=== PATIENT | male | born 1970 | race African-American/Black ===

== ENCOUNTER 2023-10-08 20:52 | Emergency (ER) | payer SELFPAY ==
[2023-10-08 20:58] VITALS: BP 151/98; PULSE 89; RESP 18; TEMP 37.2; O2SAT 100; BMI 26.4
--- NOTE | 2023-10-08 21:04 | ED_ITS ---
HPI - Male Genitourinary General Chief complaint: Recheck/Abnormal Lab/Rx Stated complaint: UTI Time Seen by Provider: 10/08/23 20:59 Source: patient Mode of arrival: walk-in History of Present Illness HPI Narrative: 53-year-old male presents because he is concerned about having a UTI. For the past day or so he has had dysuria and frequency. 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 He has had UTIs in the past. No fever back pain or vomiting. He is not at all worried about an STD. Related Data Home Medications ?Medication ?Instructions ?Recorded ?Confirmed apixaban .ROUTE 10/08/23 Previous Rx's ?Medication ?Instructions ?Recorded ciprofloxacin HCl 250 mg tablet 250 mg PO BID #14 tabs 10/08/23 (Cipro) Allergies Allergy/AdvReac Type Severity Reaction Status Date / Time No Known Drug Allergies Allergy Verified 10/08/23 21:04 Review of Systems ROS Narrative A ten point review of systems is negative except as noted above. Exam Narrative Exam Narrative: Nurses note and vital signs reviewed and patient is not hypoxic. General: The patient appears well and in no apparent distress. Patient is resting comfortably on cart. Skin: Warm, dry, no pallor noted. There is no rash noted. Head: Normocephalic, atraumatic Eye: Normal conjunctiva, no drainage Ears, Nose, Mouth, and Throat: oral mucosa is moist. Nares patent. Cardiovascular: Regular Rate and Rhythm Respiratory: Patient is in no distress, no accessory muscle use, lungs are armando r to auscultation, no wheezing, rales or rhonchi Back: non-tender GI: Soft and nontender Musculoskeletal: The patient has no evidence of calf tenderness, no pitting edema, symmetrical pulses noted bilaterally Neurological: A&O, normal speech Psychiatric: Cooperative Constitutional Vital Signs, click to edit/add: Last Vital Signs Temp 98.9 F 10/08/23 20:58 Pulse 89 10/08/23 20:58 Resp 18 10/08/23 20:58 BP 151/98 H 10/08/23 20:58 Pulse Ox 100 10/08/23 20:58 O2 Del Method Room Air 10/08/23 20:58 Course Vital Signs Vital signs: Vital Signs Temperature 98.9 F 10/08/23 20:58 Pulse Rate 89 10/08/23 20:58 Respiratory Rate 18 10/08/23 20:58 Blood Pressure 151/98 H 10/08/23 20:58 Pulse Oximetry 100 10/08/23 20:58 Oxygen Delivery Method Room Air 10/08/23 20:58 Temperature 98.9 F 10/08/23 20:58 Pulse Rate 89 10/08/23 20:58 Respiratory Rate 18 10/08/23 20:58 Blood Pressure 151/98 H 10/08/23 20:58 Pulse Oximetry 100 10/08/23 20:58 Oxygen Delivery Method Room Air 10/08/23 20:58 MDM - Male Genitourinary MDM Narrative Medical decision making narrative: Initially the patient told me he was not concerned about an STD but later he confessed that he is worried and wants to be treated. He was given IM Rocephin and Zithromax. Urinary probes are ordered as well as a urine culture. Treatment diagnosis and follow-up were discussed with the patient Differential Diagnosis Differential diagnosis: Likely urinary tract infection and urethritis Lab Data Attestation: I reviewed the patient's lab results. Labs: Lab Results 10/08/23 Range/Units 21:12 Urine Color Lt. yellow (YELLOW) Urine Clarity Clear (CLEAR) Urine pH 7.5 (5.0-9.0) Ur Specific [place] 1.015 (1.005-1.025) Urine Protein Negative (NEG/TRACE) mg/dL Urine Glucose (UA) Negative (NEGATIVE) mg/dL Urine Ketones Negative (NEGATIVE) mg/dL Urine Occult Blood Negative (NEGATIVE) Urine Nitrite Negative (NEGATIVE) Urine Bilirubin Negative (NEGATIVE) Urine Urobilinogen 1.0 (0.2-1.0) EU/dL Ur Leukocyte Esterase Trace A (NEGATIVE) Urine RBC 0-2 (0-2) #/HPF Urine WBC 2-5 A (NONE SEEN) #/HPF Ur Squamous Epith Cells Few A (NONE/RARE) #/LPF Urine Crystals None seen (None Seen) #/HPF Urine Bacteria None seen (NONE SEEN) #/HPF Urine Casts None seen (NONE SEEN) #/LPF Urine Mucus None seen (NONE SEEN) Discharge Plan Discharge Stand Alone Forms: Portal Instructions Chief Complaint: Recheck/Abnormal Lab/Rx Clinical Impression: Dysuria Patient Disposition: Home, Self-Care Time of Disposition Decision: 21:47 Condition: Good Mode of Transportation: Private Vehicle Prescriptions / Home Meds: New ciprofloxacin HCl [Cipro] 250 mg tablet 250 mg PO BID Qty: 14 0RF No Action apixaban [Eliquis] .ROUTE Print Language: Swedish Instructions: Dysuria (ED) Referrals: Physician,Non-Staff, MD [Primary Care Provider] - 1 week
[2023-10-08 21:18] LABS: Bilirubin Urine NEGATIVE (NEGATIVE); Blood Urine NEGATIVE (NEGATIVE); Clarity Urine CLEAR (CLEAR); Color Urine LT. YELLOW (YELLOW); Glucose Urine UA NEGATIVE (NEGATIVE); Ketones Urine NEGATIVE (NEGATIVE); Leukocyte Esterase Urine TRACE (NEGATIVE); Nitrite Urine NEGATIVE (NEGATIVE); Protein Urine NEGATIVE (NEG/TRACE); Specific Gravity Urine 1.015 (1.005-1.025); pH Urine 7.5 (5.0-9.0)
[2023-10-08 21:26] LABS: Bacteria Urine NONE SEEN #/HPF (NONE SEEN); Mucus Urine NONE SEEN (NONE SEEN); RBC Urine 0-2 #/HPF (0-2); Squamous Epithelial Cell Urine FEW #/LPF (NONE/RARE)
[2023-10-08 21:27] LABS: Cast Seen? NONE SEEN #/LPF (NONE SEEN); Crystals Seen? None Seen #/HPF (None Seen)
[2023-10-08] MEDS: CEFTRIAXONE 500 MG, WATER FOR INJECTION,STERILE 1 ML IM (22:26)
[2023-10-08] MEDS: AZITHROMYCIN 250 MG TABLET 1000 MG PO (22:26)
[2023-10-12 07:08] LABS: Neisseria gonorrhoeae, NAA Negative (Negative)
== END 2023-10-08 22:33 | disposition home or self-care (01) ==
PROVIDERS: Emergency Provider Emergency Medicine
DX: R30.0 Dysuria (principal); Z87.440 Personal history of urinary (tract) infections; Z79.01 Long term (current) use of anticoagulants
CPT/HCPCS: 81001; 87086; 87491; 87591; 96372; 99284